=== PATIENT | male | born 1990 | race Asian ===

== ENCOUNTER 2020-07-22 20:20 | Emergency (ER) | payer OTHER ==
[2020-07-22 20:26] VITALS: BP 125/86; PULSE 84; TEMP 98.1; BMI 34.0
[2020-07-22] MEDS ORDERED: ACETAMINOPHEN 325 MG TABLET (FP) PO ONE (20:43)
[2020-07-22] MEDS ORDERED: ACETAMINOPHEN 325 MG TABLET (FP) ONE (20:56)
[2020-07-22] MEDS ORDERED: IBUPROFEN 600 MG TABLET (FP) PO ONE (21:29)
[2020-07-22] MEDS ORDERED: IBUPROFEN 400 MG TABLET (FP) PO ONE (21:39)
== END 2020-07-22 21:53 | disposition home or self-care (01) ==
LOC: JER 20:20
DX: S49.92XA Unspecified injury of left shoulder and upper arm, initial encounter (principal); W10.8XXA Fall (on) (from) other stairs and steps, initial encounter
CPT/HCPCS: 73030-TC-LT-FY; 73060-TC-LT-FY; 73070-TC-LT-FY; 99284-25

== ENCOUNTER 2022-08-14 09:26 | Emergency (ER) | payer OTHER ==
[2022-08-14 09:35] VITALS: BP 128/87; PULSE 98; RESP 16; TEMP 97.8; BMI 36.5
== END 2022-08-14 10:11 | disposition home or self-care (01) ==
LOC: JERFT 09:26
DX: M79.622 Pain in left upper arm (principal); S40.812A Abrasion of left upper arm, initial encounter; V49.40XA Driver injured in collision with unspecified motor vehicles in traffic accident, initial encounter; Y93.I9 Activity, other involving external motion; Y92.410 Unspecified street and highway as the place of occurrence of the external cause
CPT/HCPCS: 99282-25